=== PATIENT | female | born 1950 | race Two or more races ===

== ENCOUNTER 2022-04-12 20:06 | Emergency (ER) | payer MEDICAID, OTHER ==
[~2022-04-12] VITALS: Ht 160 cm; Wt 71.7 kg
[~2022-04-12 20:06] MED LIST: IBUP800T27 PO
[2022-04-12] MEDS ORDERED: methylPREDNISolone SOD SUCC 125 MG/2 ML VL IV ONE (22:15)
[2022-04-12] MEDS ORDERED: IPRATROPIUM BROM 0.5 MG/2.5ML INH SOL NEB ONE (22:15)
[2022-04-12] MEDS ORDERED: ALBUTEROL SULF 2.5 MG/0.5ML(0.5%) NEB SOLN NEB ONE (22:15)
[2022-04-12 22:25] LABS: Basophils # (auto) 0.2 10 ^3/uL (0-0.2); Basophils % (auto) 1.8 % (0.0-2.0); Eosinophils # (auto) 0.1 10 ^3/uL (0-0.8); Eosinophils % (auto) 0.9 % (0.0-7.0); Hematocrit 39.6 % (36.0-46.0); Hemoglobin 13.7 g/dL (12.2-16.2); Lymphocytes # (auto) 2.5 10 ^3/uL (0.4-5.4); Lymphocytes % (auto) 22.6 % (10.0-50.0); Mean Corpuscular Hemoglobin 33.2 pg (28.0-32.0); Mean Corpuscular Hgb Conc. 34.7 g/dL (32.0-36.0); Mean Corpuscular Volume 95.7 fL (80.0-100.0); Monocytes # (auto) 1.1 10 ^3/uL (0-1.3); Neutrophils % (auto) 64.7 % (37.0-80.0); Nucleated Red Blood Cells % 0.1 %; Red Blood Cells 4.14 10^6/uL (4.0-5.20); Red Cell Distribution Width 13.3 % (11.8-14.3); White Blood Cell 10.9 10^3/uL (4.4-10.8)
[2022-04-12 22:33] LABS: Albumin 3.7 g/dL (3.4-5.0); Calcium 8.9 mg/dL (8.5-10.1); Potassium 3.8 mmol/L (3.5-5.1)
[2022-04-12 22:37] LABS: Bilirubin, Total 0.8 mg/dL (0.2-1.0); Total Protein 7.7 g/dL (6.4-8.2)
[2022-04-12 23:00] VITALS: BP 137/44
[2022-04-12] MEDS ORDERED: ALBU108A5 IN (23:18)
[2022-04-12] MEDS ORDERED: PRED20TA2 PO (23:18)
== END 2022-04-13 | disposition home or self-care (01) ==
LOC: ER 20:06
DX: J44.1 Chronic obstructive pulmonary disease with (acute) exacerbation (principal); B34.9 Viral infection, unspecified; E78.5 Hyperlipidemia, unspecified; F17.210 Nicotine dependence, cigarettes, uncomplicated; Z79.1 Long term (current) use of non-steroidal anti-inflammatories (NSAID)
CPT/HCPCS: 36415; 71045; 80053; 83880; 84484; 85025; 93005; 94640; 96374; 99285; J2930; J7644

== ENCOUNTER 2022-08-30 10:56 | Emergency (ER) | payer OTHER, MEDICAID ==
[~2022-08-30] VITALS: Ht 160 cm; Wt 75.0 kg
[~2022-08-30 10:56] MED LIST changes: +ALBU108A5 IN; +PRED20TA2 PO
[2022-08-30 12:34] VITALS: BP 157/58
[2022-08-30] MEDS ORDERED: methylPREDNISolone SOD SUCC 125 MG/2 ML VL IM ONE (13:00)
[2022-08-30] MEDS ORDERED: cefTRIAXone SOD 1,000 MG VL IM ONE (13:00)
[2022-08-30] MEDS ORDERED: IPRATROPIUM BROM 0.5 MG/2.5ML INH SOL NEB ONE (13:00)
[2022-08-30] MEDS ORDERED: ALBUTEROL SULF 2.5 MG/0.5ML(0.5%) NEB SOLN NEB ONE (13:00)
[2022-08-30] MEDS ORDERED: METH4PAK PO (13:38)
[2022-08-30] MEDS ORDERED: LEVO500T31 PO (13:38)
[2022-08-30] MEDS ORDERED: PROM1SOL4 PO (13:38)
== END 2022-08-30 13:51 | disposition home or self-care (01) ==
LOC: ER 10:56
DX: J44.9 Chronic obstructive pulmonary disease, unspecified (principal); J20.9 Acute bronchitis, unspecified; J03.90 Acute tonsillitis, unspecified; E11.9 Type 2 diabetes mellitus without complications; E78.5 Hyperlipidemia, unspecified; F17.210 Nicotine dependence, cigarettes, uncomplicated
CPT/HCPCS: 71046; 93005; 94640; 96372; 99284; J0696; J2930; J7644

== ENCOUNTER 2023-02-20 15:51 | Emergency (ER) | payer OTHER, MEDICAID ==
[~2023-02-20] VITALS: Ht 157.5 cm; Wt 74.7 kg
[~2023-02-20 15:51] MED LIST changes: +LEVO500T31 PO; +METH4PAK PO; +PROM1SOL4 PO
[2023-02-20] MEDS ORDERED: methylPREDNISolone SOD SUCC 125 MG/2 ML VL IV ONE (16:30)
[2023-02-20] MEDS ORDERED: ASPirin 325 MG TAB PO ONE (16:30)
[2023-02-20] MEDS ORDERED: ALBUTEROL SULF 2.5 MG/0.5ML(0.5%) NEB SOLN NEB ONE (16:30)
[2023-02-20] MEDS ORDERED: IPRATROPIUM BROM 0.5 MG/2.5ML INH SOL NEB ONE (16:30)
[2023-02-20 16:56] LABS: Basophils # (auto) 0.2 10 ^3/uL (0-0.2); Basophils % (auto) 1.3 % (0.0-2.0); Eosinophils # (auto) 0.5 10 ^3/uL (0-0.8); Eosinophils % (auto) 3.8 % (0.0-7.0); Hematocrit 39.3 % (36.0-46.0); Hemoglobin 13.3 g/dL (12.2-16.2); Lymphocytes # (auto) 4.5 10 ^3/uL (0.4-5.4); Lymphocytes % (auto) 32.9 % (10.0-50.0); Mean Corpuscular Hemoglobin 32.1 pg (28.0-32.0); Mean Corpuscular Hgb Conc. 33.9 g/dL (32.0-36.0); Mean Corpuscular Volume 94.7 fL (80.0-100.0); Monocytes % (auto) 7.4 % (0.0-12.0); Neutrophils # (auto) 7.5 10 ^3/uL (1.6-8.6); Neutrophils % (auto) 54.6 % (37.0-80.0); Nucleated Red Blood Cells % 0.1 %; Red Blood Cells 4.15 10^6/uL (4.0-5.20); Red Cell Distribution Width 13.2 % (11.8-14.3); White Blood Cell 13.7 10^3/uL (4.4-10.8)
[2023-02-20 17:06] LABS: Urine Bacteria FEW /hpf (None Seen); Urine Blood 1+ /uL (Negative); Urine Specific Gravity 1.006 (1.001-1.035); Urine WBC <1 /hpf (0 - 5)
[2023-02-20 17:40] LABS: Albumin 4.1 g/dL (3.4-5.0); Calcium 9.3 mg/dL (8.5-10.1); Potassium 3.9 mmol/L (3.5-5.1)
[2023-02-20 17:44] LABS: BUN/Creatinine Ratio 10.6 (10.0-20.0); Bilirubin, Total 0.9 mg/dL (0.2-1.0); Total Protein 7.2 g/dL (6.4-8.2)
[2023-02-20] MEDS ORDERED: PRED20TA2 PO (22:33)
[2023-02-20 22:47] VITALS: BP 144/90
== END 2023-02-20 22:48 | disposition home or self-care (01) ==
LOC: ER 15:51
DX: J44.1 Chronic obstructive pulmonary disease with (acute) exacerbation (principal); Z20.822 Contact with and (suspected) exposure to COVID-19
CPT/HCPCS: 36415; 36600; 71045; 80053; 81001; 82805; 82962; 83605; 83880; 84484; 85025; 85379; 87426; 87804; 93005; 94640; 96374; 99285; J2930; J7644

== ENCOUNTER 2023-04-16 11:52 | Emergency (ER) | payer OTHER, MEDICAID ==
[~2023-04-16] VITALS: Ht 160 cm; Wt 75.5 kg
[~2023-04-16 11:52] MED LIST changes: +IBUP-1456 PO; -IBUP800T27 PO
[2023-04-16 12:10] VITALS: BP 172/62
[2023-04-16] MEDS ORDERED: HYDROcodone-ACET 5/325MG TAB PO ONE (14:00)
[2023-04-16] MEDS ORDERED: NEOMYCIN-BACITRACIN-POLYM UNITDOSE PKG TOP OINT TOP ONE (15:30)
[2023-04-16] MEDS ORDERED: TETANUS-DIPTH-ACEL PERTUSSIS 0.5ML SYR Tdap IM ONE (15:30)
[2023-04-16] MEDS ORDERED: IBUP1TAB5 PO (15:32)
[2023-04-16] MEDS ORDERED: MAX35OO TOP (15:32)
[2023-04-16] MEDS ORDERED: HYDR-4902 PO (15:32)
== END 2023-04-16 16:01 | disposition home or self-care (01) ==
LOC: ER 11:52
DX: S40.022A Contusion of left upper arm, initial encounter (principal); S80.12XA Contusion of left lower leg, initial encounter; E11.9 Type 2 diabetes mellitus without complications; E78.5 Hyperlipidemia, unspecified; J44.9 Chronic obstructive pulmonary disease, unspecified; Z79.1 Long term (current) use of non-steroidal anti-inflammatories (NSAID); Z79.899 Other long term (current) drug therapy; Z79.2 Long term (current) use of antibiotics; W01.0XXA Fall on same level from slipping, tripping and stumbling without subsequent striking against object, initial encounter; Y93.89 Activity, other specified; Y92.89 Other specified places as the place of occurrence of the external cause; Y99.8 Other external cause status
CPT/HCPCS: 73080; 73090; 73110; 73564; 73590; 90471; 90715

== ENCOUNTER 2024-03-26 07:00 | Emergency (ER) | payer OTHER, MEDICAID ==
[~2024-03-26] VITALS: Ht 160 cm; Wt 75.1 kg
[~2024-03-26 07:00] MED LIST changes: +HYDR-4902 PO; +IBUP1TAB5 PO; +MAX35OO TOP
[2024-03-26] MEDS: IPRATROPIUM BROM 0.5 MG/2.5ML INH SOL NEB ONE (08:15)
[2024-03-26] MEDS: ALBUTEROL SULF 2.5 MG/0.5ML(0.5%) NEB SOLN NEB ONE (08:15)
[2024-03-26] MEDS: methylPREDNISolone SOD SUCC 125 MG/2 ML VL IM ONE (08:27)
[2024-03-26 08:31] VITALS: BP 125/73; PULSE 105; RESP 19; TEMP 98.5; O2SAT 95
[2024-03-26] MEDS ORDERED: LEVO500T91 PO (08:31)
[2024-03-26] MEDS ORDERED: IOHEXOL 300 MG/ML 100ML BOTTLE IJ ONE (10:46)
== END 2024-03-26 08:36 | disposition home or self-care (01) ==
LOC: ER 07:00
DX: J20.9 Acute bronchitis, unspecified (principal); J44.0 Chronic obstructive pulmonary disease with (acute) lower respiratory infection; E11.9 Type 2 diabetes mellitus without complications; E78.5 Hyperlipidemia, unspecified
CPT/HCPCS: 71046; 94640; 96372; 99283; J2919; J7644

== ENCOUNTER 2024-12-10 07:48 | Emergency (ER) | payer OTHER, MEDICAID ==
[~2024-12-10] VITALS: Ht 160 cm; Wt 76.6 kg
[~2024-12-10 07:48] MED LIST changes: +LEVO500T91 PO
--- NOTE | 2024-12-10 08:02 | ECG ---
[facility] Test Date: 2024-12-10 Test Time: 08:00:45 Pat Name: DONTAE HEREDIA Department: ER Room: Gender: F Painting Department Supervisor: MARIA A : 1950 Requested By: SHELL ALCAZAR Order Number: [id number] Reading MD: Sky Mane Measurements Intervals [place] Rate: 63 P: 31 MS: 136 QRS: 42 QRSD: 84 T: 43 QT: 446 QTc: 457 Interpretive Statements Sinus rhythm Minimal ST depression, lateral leads Electronically Signed On 12-10-2024 8:22:34 PST by Sky Mane Please click the below link to view image of tracing.
[2024-12-10 08:07] VITALS: BP 147/51; TEMP 98.9
--- NOTE | 2024-12-10 08:15 | ED.PDOC ---
SOB-HPI HPI Comments A 74 YEAR OLD FEMALE PRESENTS TO THE ED WITH COMPLAINT OF COUGH. PATIENT STATES SHE HAS BEEN EXPERIENCING A COUGH, CONGESTION, AND SORE THROAT FOR THE PAST 5 DAYS. PATIENT NOTES SHE WENT TO AN URGENT CARE A FEW DAYS AGO WHERE SHE WAS PRESCRIBED DOXYCYCLINE AND STEROIDS, BUT NOTES THERE HAS BEEN NO IMPROVEMENT IN HER SYMPTOMS. PATIENT NOTES SHE HAS A HISTORY OF COPD. PATIENT DENIES FEVER, CHILLS, SHORTNESS OF BREATH, CHEST PAIN, ABDOMINAL PAIN, NAUSEA, VOMITING, HEADACHE, OR OTHER COMPLAINTS. NO OTHER SYMPTOMS OR MODIFYING FACTORS AT THIS TIME. PATIENT IS ALERT, ORIENTED X 4, AND HAS STEADY GAIT. Chief Complaint: Cough Time Seen by MD: 07:57 Primary Care Provider: MIRIAM Singleton notes: Nurses Notes, Medications, Allergies Information Source: Patient Mode of Arrival: Ambulatory Severity: Moderate Timing: Days Duration: Since onset, Days Context: Spontaneous Onset PE Risk Factors: None History of: COPD, Recent URI Prehospital treatment: None Modifying Factors: Nothing Associated Signs and Symptoms: Cough, Nasal Congestion, Sore Throat If cough with SOB: Productive Past Medical History PAST MEDICAL HISTORY: Arthritis, COPD, DM, High Lipids Surgical History: Denies all surgeries ATOMIZER ASSEMBLER History: No Pertinent ATOMIZER ASSEMBLER History Family History Family History: Reviewed,noncontributory to illness Social History Smoker: Non-Smoker Alcohol: Denies ETOH Use Drugs: Denies Drug Use Lives In: Home Constitutional: denies: chills, diaphoresis, fatigue, fever, malaise, sweats, weakness, others EENTM: reports: nose congestion, throat pain, throat swelling; denies: blurred vision, double vision, ear bleeding, ear discharge, ear drainage, ear pain, ear ringing, eye pain, eye redness, hearing loss, mouth pain, mouth swelling, nasal discharge, nose bleeding, nose pain, photophobia, tearing, voice changes, others Respiratory: reports: cough; denies: hemoptysis, orthopnea, SOB at rest, shortness of breath, SOB with excertion, stridor, wheezing, others Cardiovascular: denies: chest pain, dizzy spells, diaphoresis, Dyspnea on exertion, edema, irregular heart beat, left arm pain, lightheadedness, palpitations, PND, syncope, others Gastrointestinal: denies: abdomen distended, abdominal pain, blood streaked bowels, constipated, diarrhea, dysphagia, difficulty swallowing, hematemesis, melena, nausea, poor appetite, poor fluid intake, rectal bleeding, rectal pain, vomiting, others Genitourinary: denies: abnormal vagina bleeding, burning, dyspareunia, dysuria, flank pain, frequency, hematuria, incontinence, pain, , vagina discharge, urgency, others Neurological: denies: dizziness, fainting, headache, left sided numbness, left sided weakness, numbness, paresthesia, pre-existing deficit, right sided numbness, right sided weakness, seizure, speech problems, tingling, tremors, weakness, others Musculoskeletal: denies: back pain, gout, joint pain, joint swelling, muscle pain, muscle stiffness, neck pain, others Integumetry: denies: bruises, change in color, change in hair/nails, dryness, laceration, lesions, lumps, rash, wounds, others Allergic/Immunocompromised: denies: Difficulty Healing, Frequent Infections, Hives, Itching, others Hematologic/Lymphatic: denies: anemia, blood clots, easy bleeding, easy bruising, swollen glands, others Endocrine: denies: excessive hunger, excessive sweating, excessive thirst, excessive urination, flushing, intolerance to cold, intolerance to heat, unexplained weight gain, unexplained weight loss, others Psychiatric: denies: anxiety, bipolar disorder, depression, hopeless, panic disorder, schizophrenia, sleepless, suicidal, others All Other Systems: Reviewed and Negative Physical Exam General Appearance: No Apparent Distress, Normal HEENT: PERRL/EOMI, Pharyngeal Erythema (TONSILLAR SWELLING, NO EXUDATES. ), TMs Normal Neck: Full Range of Motion, Non-Tender, Normal, Normal Inspection Respiratory: Chest Non-Tender, Decreased Breath Sounds, Expiration, No Accessory Muscle Use, No Respiratory Distress, Rhonchi Cardiovascular: No Edema, No JVD, No Murmur, No Gallop, Normal Peripheral Pulses, Regular Rate/Rhythm Breast Exam: Deferred Gastrointestinal: No Organomegaly, Non Tender, No Pulsatile Mass, Normal Bowel Sounds, Soft Genitalia: Deferred Pelvic: Deferred Rectal: Deferred Extremities: No calf tenderness, Normal capillary refill, Normal inspection, Normal range of motion, Non-tender, No pedal edema Musculoskeletal : Apperance: Normal Neurologic: Alert, family resource specialist II-XII nml as Tested, No Motor Deficits, Normal Affect, Normal Mood, No Sensory Deficits Cerebellar Function: Normal Reflexes: Normal Skin: Dry, Normal Color, Warm Peripheral Pulses: 2+ carotid (R), 2+ carotid (L) Lymphatic: No Adenopathy EKG EKG : Pulse Rate (adult): 63 [place]: Normal Block: None Hypertrophy: None ST: Normal Was a procedure done? Was a procedure done?: No Differential Dx Differential Diagnosis: Bronchitis, COPD, Pneumonia, Sinusitis, Allergic Rhinitis, Otitis Media, Pharyngitis, URI X-Ray, Labs, Meds, VS Vital Signs Date Time Temp Pulse Resp B/P (MAP) Pulse Ox O2 Delivery O2 Flow Rate FiO2 12/10/24 08:21 18 95 Room Air* 0 21 12/10/24 08:07 79 12/10/24 08:07 98.9 79 15 147/51 (83) 97 98.9 12/10/24 08:00 63 12/10/24 07:59 98.9 79 15 147/51 (83) 97 Current Medications Medications (Trade) Dose Ordered Sig/Sadaf Route Start Time Stop Time Status Last Admin Albuterol (Ventolin Medneb) 2.5 mg ONCE ONCE NEB 12/10/24 08:15 12/10/24 08:16 DC 12/10/24 08:20 Ipratropium [place] (Atrovent Medneb) 0.5 mg ONCE ONCE NEB 12/10/24 08:15 12/10/24 08:16 DC 12/10/24 08:21 Methylprednisolone Sodium Succinate (Solu Medrol) 125 mg ONCE ONCE IM 12/10/24 08:15 12/10/24 08:16 DC 12/10/24 08:26 Ceftriaxone Sodium (Rocephin) 1,000 mg ONCE ONCE IM 12/10/24 08:15 12/10/24 08:16 DC 12/10/24 08:26 CLINICAL INFORMATION: 74 years old, Female; COUGH. TECHNIQUE: Frontal and lateral chest radiographs were obtained. COMPARISON: XY CHEST TWO VIEWS ROUTINE on DOS: 03/26/24, CXR2 on DOS: 08/30/22, CHEST TWO VIEWS ROUTINE on DOS: 08/30/22 FINDINGS: Lungs: Mild atelectasis in the lung bases. No focal consolidation. Hyperaeration of the lungs suggesting emphysematous changes. Cardiac: Heart size is within normal limits. Pulmonary vasculature: Unremarkable Mediastinum/raul: Dense atherosclerotic calcification of the aortic arch. Bones: No evidence of acute osseous abnormality. Other: No other significant finding. IMPRESSION: 1. No evidence of acute disease in the chest. 2. Nonacute findings as described above. ATED BY: WILLIE MENESES DO DICTATED DATE/TIME: 12/10/24815 SIGNED BY: WILLIE MENESES DO SIGNED DATE/TIME: 12/10/24815 CC: X-Ray, Labs, Meds, VS Comment EXTERNAL MEDICAL RECORDS REVIEWED: [NONE] INDEPENDENT HISTORIANS: [NONE] SOCIAL DETERMINANTS OF HEALTH: [NONE] LABS ORDERED: NONE REVIEWED AND INTERPRETED RESULTS: NONE IMAGING ORDERED: XR CHEST TREATMENTS ORDERED: ROCEPHIN 1 G IM, SOLU-MEDROL 125 MG IM, DUONEB 3 MG INHL PROCEDURES PERFORMED: NONE CRITICAL CARE TIME: NONE I HAVE DISCUSSED THE PATIENT WITH THE ATTENDING PHYSICIAN DR. PERALTA AND HE AGREES WITH THE PATIENT'S PLAN OF CARE AND DISPOSITION. BASED ON HISTORY OF PRESENT ILLNESS, AND PHYSICAL EXAM, PATIENT WILL BE DISCHARGED HOME. DISCUSSED PLAN FOR DISCHARGE HOME WITH RX [LEVAQUIN]. MEDICATION WARNINGS GIVEN. SHARED DECISION MAKING: PATIENT INSTRUCTED TO FOLLOW UP WITH PRIMARY CARE PROVIDER IN 1-2 DAYS FOR RE-EVALUATION OF SYMPTOMS. PATIENT VERBALIZES UNDERST ANDING TO RETURN TO ED FOR NEW OR WORSENING SYMPTOMS OR IF FOLLOW UP WITH PCP CANNOT BE OBTAINED. PATIENT FEELS COMFORTABLE GOING HOME AT THIS TIME. ALL QUESTIONS ADDRESSED AT TIME OF DISCHARGE. Images Reviewed?: Images reviewed and evaluated by me Time of 1ST Reevaluation: 08:43 Reevaluation 1ST: Improved Patient Education/Counseling: Diagnosis, Treatment, Need For Follow Up Family Education/Counseling: Diagnosis, Treatment, Need For Follow Up Medical Screening: No EMC Exist At This Time Departure 1 Departure Time of Disposition: 08:44 Impression: Primary Impression: Acute bronchitis with COPD Additional Impression: Acute tonsillitis Qualified Codes: J03.90 - Acute tonsillitis, unspecified Disposition: 01 HOME / SELF CARE / HOMELESS Condition: Stable Additional Instructions: FOLLOW-UP WITH PCP IN 1 TO 2 DAYS. TAKE MEDICATIONS PRESCRIBED. RETURN TO ED FOR ANY NEW OR WORSENING SYMPTOMS. e-Prescriptions Promethazine-Dm (Promethazine Dm 6.25-15 mg/5Ml) 1 Janice Janice 5 ML PO TID, #160 ML Prov: SHELL ALCAZAR 12/10/24 Levofloxacin Hemihydrate (LEVAQUIN 500 MG) 500 Mg Tab 1 TAB PO DAILY, #10 TAB Prov: SHELL ALCAZAR 12/10/24 Discharged With: Self Critical Care Note Critical Care Time?: No Stability Stability form required: No Heart Score Heart Score: Heart Score Response (Comments) Value History N/A 0 EKG N/A 0 Age N/A 0 Risk Factors N/A 0 Troponin N/A 0 Total 0 I personally scribed for SHELL ALCAZAR ([email or web address]) on 12/10/24 at 08:14. Electronically submitted by Pierre Pate ([employer]). I personally scribed for SHELL ALCAZAR ([email or web address]) on 12/10/24 at 08:26. Electronically submitted by Pierre Pate ([employer]). I personally scribed for SHELL ALCAZAR ([email or web address]) on 12/10/24 at 08:37. Electronically submitted by Pierre Pate ([employer]). SHELL ALCAZAR Dec 10, 2024 08:14
--- NOTE | 2024-12-10 08:19 | DVH ---
CLINICAL INFORMATION: 74 years old, Female; COUGH. TECHNIQUE: Frontal and lateral chest radiographs were obtained. COMPARISON: XY CHEST TWO VIEWS ROUTINE on DOS: 03/26/24, CXR2 on DOS: 08/30/22, CHEST TWO VIEWS ROUTINE on DOS: 08/30/22 FINDINGS: Lungs: Mild atelectasis in the lung bases. No focal consolidation. Hyperaeration of the lungs suggest ing emphysematous changes. Cardiac: Heart size is within normal limits. Pulmonary vasculature: Unremarkable Mediastinum/raul: Dense atherosclerotic calcification of the aortic arch. Bones: No evidence of acute osseous abnormality. Other: No other significant finding. IMPRESSION: 1. No evidence of acute disease in the chest. 2. Nonacute findings as described above.
[2024-12-10] MEDS: ALBUTEROL SULF 2.5 MG/0.5ML(0.5%) NEB SOLN NEB ONE (08:20)
[2024-12-10 08:21] VITALS: RESP 18; O2SAT 95
[2024-12-10] MEDS: IPRATROPIUM BROM 0.5 MG/2.5ML INH SOL NEB ONE (08:21)
[2024-12-10] MEDS: cefTRIAXone SOD 1,000 MG VL IM ONE (08:26)
[2024-12-10] MEDS: methylPREDNISolone SOD SUCC 125 MG/2 ML VL IM ONE (08:26)
[2024-12-10 08:45] VITALS: PULSE 63
== END 2024-12-10 08:34 | disposition home or self-care (01) ==
LOC: ER 07:48
DX: J20.9 Acute bronchitis, unspecified (principal); J44.0 Chronic obstructive pulmonary disease with (acute) lower respiratory infection; M19.90 Unspecified osteoarthritis, unspecified site; E11.9 Type 2 diabetes mellitus without complications; E78.5 Hyperlipidemia, unspecified
CPT/HCPCS: 71046; 93005; 94640; 96372; 99284; J0696; J2919